=== PATIENT | male | born 1945 | race Caucasian/White ===

== ENCOUNTER → 2020-02-02 | Outpatient (CLI) | payer OTHER | END | disposition home or self-care (01) | LOC: RAH 10:59 | PROVIDERS: ATTEND Nurse Practitioner Adult Health | DX: Z13.6 Encounter for screening for cardiovascular disorders (principal) | CPT/HCPCS: 75571 ==

== ENCOUNTER → 2020-02-25 | Outpatient (CLI) | payer MEDICARE | END | disposition home or self-care (01) | LOC: SHCH 14:29 | PROVIDERS: ATTEND Internal Medicine Cardiovascular Disease | DX: R60.0 Localized edema (principal) ==

== ENCOUNTER → 2020-02-29 | Outpatient (CLI) | payer MEDICARE ==
[~2020-02-29] MED LIST: REGADENOSON 0.4 MG/5 ML PF SYG IVP SCH
== END | disposition home or self-care (01) ==
LOC: SHCH 08:39
PROVIDERS: ATTEND Internal Medicine Cardiovascular Disease
DX: I25.10 Atherosclerotic heart disease of native coronary artery without angina pectoris (principal)
CPT/HCPCS: 78452; 93017; 96374; A9500 ×2; J2785

== ENCOUNTER → 2023-03-21 | Outpatient (CLI) | payer MEDICARE ==
[2023-03-21 12:49] LABS: CREATININE 0.8 mg/dL (0.5-1.5); POTASSIUM 4.1 mmol/L (3.5-5.1)
== END | disposition home or self-care (01) ==
LOC: LAB 10:54
PROVIDERS: ATTEND Internal Medicine Cardiovascular Disease
DX: I10 Essential (primary) hypertension (principal)
CPT/HCPCS: 36415; 80048

== ENCOUNTER → 2023-03-28 | Outpatient (CLI) | payer MEDICARE ==
[~2023-03-28] MED LIST changes: +IOHEXOL 350 MG/ML 100ML INFUS..BTL IV ONE; +METOPROLOL TARTRATE 1 MG/ML 5ML VIAL IV ONE; -REGADENOSON 0.4 MG/5 ML PF SYG IVP SCH
== END | disposition home or self-care (01) ==
LOC: RAH 12:17
PROVIDERS: ATTEND Internal Medicine Cardiovascular Disease
DX: I25.10 Atherosclerotic heart disease of native coronary artery without angina pectoris (principal); I10 Essential (primary) hypertension
CPT/HCPCS: 75574; Q9967 ×2; J3490

== ENCOUNTER → 2023-04-08 | Outpatient (CLI) | payer MEDICARE | END | disposition home or self-care (01) | LOC: SHCH 14:10 | PROVIDERS: ATTEND Internal Medicine Cardiovascular Disease | DX: I35.8 Other nonrheumatic aortic valve disorders (principal); I11.9 Hypertensive heart disease without heart failure; I25.10 Atherosclerotic heart disease of native coronary artery without angina pectoris; I49.9 Cardiac arrhythmia, unspecified; E78.5 Hyperlipidemia, unspecified | CPT/HCPCS: 93306 ==

== ENCOUNTER 2023-05-27 07:35 | Day surgery (SDC) | payer MEDICARE ==
[2023-05-23 11:02] LABS: BASOPHILS # (AUTO) 0.04 K/uL (0.00-0.20); BASOPHILS % (AUTO) 0.7 % (0.0-5.0); EOSINOPHILS # (AUTO) 0.17 K/uL (0.00-0.70); EOSINOPHILS % (AUTO) 2.9 % (0.0-8.0); IMMATURE GRANULOCYTE ABSOLUTE 0.03 K/uL (0-1); LYMPHOCYTES # (AUTO) 1.2 K/uL (1.0-4.8); LYMPHOCYTES % (AUTO) 20.3 % (21.0-51.0); MEAN CORPUSCULAR HEMOGLOBIN 29.3 pg (27.0-33.0); MEAN CORPUSCULAR HGB CONC 32.4 g/dL (32.0-36.0); MEAN CORPUSCULAR VOLUME 90.4 fL (79-99); MONOCYTES # (AUTO) 0.5 K/uL (0.1-1.0); NEUTROPHILS # (AUTO) 3.9 K/uL (1.8-7.7); NEUTROPHILS % (AUTO) 66.6 % (40.0-77.0); PLATELET COUNT (AUTO) 188 K/uL (130-400); RED BLOOD CELL COUNT(AUTO) 4.98 MIL/uL (4.50-6.20); RED CELL DISTRIBUTION WIDTH 13.6 % (11.0-15.5); WHITE BLOOD COUNT (AUTO) 5.9 K/uL (4.8-10.8)
[2023-05-23 11:12] LABS: CREATININE 0.9 mg/dL (0.5-1.5); POTASSIUM 3.7 mmol/L (3.5-5.1)
[2023-05-23 11:20] VITALS: BP 149/78; PULSE 69; RESP 19
[2023-05-23 11:31] LABS: APPEARANCE,URINE CLEAR (CLEAR); BILIRUBIN,URINE NEGATIVE (NEGATIVE); COLOR,URINE LIGHT-YELLOW (YELLOW); GLUCOSE, URINE (UA) NEGATIVE (NEGATIVE); KETONES,URINE NEGATIVE (NEGATIVE); LEUKOCYTE ESTERASE ,URINE NEGATIVE Leu/uL (NEGATIVE); NITRATE,URINE NEGATIVE (NEGATIVE); OCCULT BLOOD,URINE NEGATIVE (NEGATIVE); PH,URINE 5.5 (5.0-8.0); PROTEIN,URINE NEGATIVE (NEGATIVE); UROBILINOGEN,URINE 0.2 mg/dL (0.2-1.0)
[2023-05-23 11:36] LABS: ADD UA MICROSCOPIC YES
[2023-05-23 11:54] LABS: MUCUS,URINE RARE LPF (None Seen); RBC,URINE 0-1 /HPF (0-1); WBC,URINE 0-1 /HPF (0-1)
[2023-05-23 11:56] LABS: INR 0.96 (0.85-1.15); PROTHROMBIN TIME 11.2 SEC (9.6-11.6)
[2023-05-23 11:57] LABS: PARTIAL THROMBOPLASTIN TIME 29.2 SEC (26.3-35.5)
[~2023-05-27] VITALS: Ht 182.9 cm; Wt 121.6 kg
[2023-05-27] VITALS (10 sets, daily range): BP systolic 128–168; BP diastolic 67–85; PULSE 61–70; RESP 14–16
[~2023-05-27 07:35] MED LIST changes: +AEC81 PO; +APIX5TAB PO; +CIPR500T10 PO; -IOHEXOL 350 MG/ML 100ML INFUS..BTL IV ONE; +LISI20TA24 PO; -METOPROLOL TARTRATE 1 MG/ML 5ML VIAL IV ONE; +ROSU20TA73 PO
[2023-05-27] MEDS ORDERED: 0.9%NACL 1000ML 1,000 ML IV ONE (08:59)
[2023-05-27] MEDS ORDERED: SODIUM BICARB 50MEQ 50ML VIAL 50 ML ONE (12:08)
[2023-05-27] MEDS ORDERED: LIDOCAINE HCL 400MG/20ML VIAL ONE (12:08)
[2023-05-27] MEDS ORDERED: MEPERIDINE-PF 50 MG/ML SYG ONE ×2 (12:08→13:05)
[2023-05-27] MEDS ORDERED: MIDAZOLAM HCL 1 MG/ML 2ML VIAL ONE ×3 (12:08→13:06)
[2023-05-27] MEDS ORDERED: IOHEXOL-350 50ML VIAL IV ONE (12:09)
[2023-05-27] MEDS ORDERED: NICARDIPINE 25MG INJ IV ONE (12:09)
[2023-05-27] MEDS ORDERED: HEPARIN 10,000 UNIT/10ML (1,000 UNIT/ML) VIAL ONE (12:09)
[2023-05-27] MEDS ORDERED: IOHEXOL 350 MG/ML 100ML INFUS..BTL IV ONE (12:09)
[2023-05-27] MEDS ORDERED: 0.9%NACL 1000ML 1,000 ML IV SCH (13:30)
== END 2023-05-27 17:35 | disposition home or self-care (01) ==
LOC: DAH 07:35
PROVIDERS: ATTEND Internal Medicine Cardiovascular Disease
DX: I25.10 Atherosclerotic heart disease of native coronary artery without angina pectoris (principal); I25.82 Chronic total occlusion of coronary artery; I48.92 Unspecified atrial flutter; I45.10 Unspecified right bundle-branch block; I10 Essential (primary) hypertension; I25.2 Old myocardial infarction; Z79.899 Other long term (current) drug therapy; Z79.01 Long term (current) use of anticoagulants; Z79.82 Long term (current) use of aspirin; Z86.718 Personal history of other venous thrombosis and embolism
CPT/HCPCS: 80048; 83880; 85025; 85610; 85730; 81001; 36415; 71045; 93005 ×2; 93458; 85347; C1769 ×2; C1894; C1887; C1725; J3490 ×3; J7030; J1644 ×2; J2250 ×3; J2175 ×2; Q9967; A4215 ×2; A4222 ×2; A4663 ×2; A4216 ×2; Q9965 ×2; A4223 ×5; A4221 ×2; A4606 ×2; 92920; 96360; 96361; 99156; 99157

== ENCOUNTER → 2023-07-04 | Outpatient (CLI) | payer MEDICARE ==
[~2023-07-04] MED LIST changes: +ASPI-1197 PO; +FINA5TAB41 PO; +ROSU40TA21 PO; +TAMS-1 PO
== END | disposition home or self-care (01) ==
LOC: SHCH 10:49
PROVIDERS: ATTEND Internal Medicine Cardiovascular Disease
DX: I87.2 Venous insufficiency (chronic) (peripheral) (principal); R60.9 Edema, unspecified
CPT/HCPCS: 93971

== ENCOUNTER 2023-07-09 06:42 | Day surgery (SDC) | payer MEDICARE ==
[2023-07-08 12:26] LABS: BASOPHILS # (AUTO) 0.03 K/uL (0.00-0.20); BASOPHILS % (AUTO) 0.5 % (0.0-5.0); EOSINOPHILS # (AUTO) 0.12 K/uL (0.00-0.70); EOSINOPHILS % (AUTO) 2.1 % (0.0-8.0); HEMATOCRIT 47.1 % (42-54); IMMATURE GRANULOCYTE ABSOLUTE 0.02 K/uL (0-1); LYMPHOCYTES # (AUTO) 0.9 K/uL (1.0-4.8); LYMPHOCYTES % (AUTO) 16.6 % (21.0-51.0); MEAN CORPUSCULAR HEMOGLOBIN 29.6 pg (27.0-33.0); MEAN CORPUSCULAR HGB CONC 32.5 g/dL (32.0-36.0); MEAN CORPUSCULAR VOLUME 91.1 fL (79-99); MONOCYTES # (AUTO) 0.6 K/uL (0.1-1.0); MONOCYTES % (AUTO) 10.2 % (3.0-13.0); NEUTROPHILS # (AUTO) 3.9 K/uL (1.8-7.7); NEUTROPHILS % (AUTO) 70.2 % (40.0-77.0); PLATELET COUNT (AUTO) 187 K/uL (130-400); RED BLOOD CELL COUNT(AUTO) 5.17 MIL/uL (4.50-6.20); RED CELL DISTRIBUTION WIDTH 14.6 % (11.0-15.5); WHITE BLOOD COUNT (AUTO) 5.6 K/uL (4.8-10.8)
[2023-07-08 12:43] LABS: INR 0.97 (0.85-1.15); PROTHROMBIN TIME 11.3 SEC (9.6-11.6)
[2023-07-08 12:44] LABS: PARTIAL THROMBOPLASTIN TIME 27.6 SEC (26.3-35.5)
[2023-07-08 12:45] VITALS: BP 162/83; PULSE 67; RESP 18
[2023-07-08 12:52] LABS: CREATININE 0.8 mg/dL (0.5-1.5); POTASSIUM 4.7 mmol/L (3.5-5.1)
[~2023-07-09] VITALS: Ht 182.9 cm; Wt 117.8 kg
[2023-07-09] VITALS (9 sets, daily range): BP systolic 107–158; BP diastolic 58–84; PULSE 64–82; RESP 14–16
[~2023-07-09 06:42] MED LIST changes: -CIPR500T10 PO; -ROSU20TA73 PO
[2023-07-09] MEDS ORDERED: 0.9%NACL 1000ML 1,000 ML IV ONE (06:54)
[2023-07-09] MEDS ORDERED: MEPERIDINE-PF 25 MG/ML SYG ONE ×3 (09:33→10:43)
[2023-07-09] MEDS ORDERED: LIDOCAINE HCL 400MG/20ML VIAL ONE (09:33)
[2023-07-09] MEDS ORDERED: MIDAZOLAM HCL 1 MG/ML 2ML VIAL ONE ×3 (09:34→10:43)
[2023-07-09] MEDS ORDERED: HEPARIN 10,000 UNIT/10ML (1,000 UNIT/ML) VIAL ONE (09:34)
== END 2023-07-09 14:40 | disposition home or self-care (01) ==
LOC: DAH 06:42
PROVIDERS: ATTEND Internal Medicine Cardiovascular Disease
DX: I48.3 Typical atrial flutter (principal); I25.10 Atherosclerotic heart disease of native coronary artery without angina pectoris; I10 Essential (primary) hypertension; E78.5 Hyperlipidemia, unspecified; Z80.9 Family history of malignant neoplasm, unspecified; Z72.89 Other problems related to lifestyle; Z79.82 Long term (current) use of aspirin; Z79.899 Other long term (current) drug therapy
CPT/HCPCS: 80048; 85025; 85610; 85730; 36415; 93005 ×2; 93653; 85347; C1894 ×2; C1732 ×2; A4649 ×2; J3490; J7030; J2250 ×2; J2175 ×3; J1644; A4215; A4222; A4221; A4663; A4216; A4606; A4223 ×3; 99156; 99157

== ENCOUNTER → 2023-12-18 | Outpatient (CLI) | payer MEDICARE ==
[~2023-12-18] MED LIST changes: +ASPI-1005 PO; +CLOP75TA32 PO; +DABI150C PO; +LISI40TA9 PO; -ROSU40TA21 PO; +ROSU40TA70 PO
[2023-12-18 12:09] LABS: BASOPHILS # (AUTO) 0.03 K/uL (0.00-0.20); BASOPHILS % (AUTO) 0.5 % (0.0-5.0); EOSINOPHILS # (AUTO) 0.17 K/uL (0.00-0.70); EOSINOPHILS % (AUTO) 2.7 % (0.0-8.0); HEMATOCRIT 44.3 % (42-54); IMMATURE GRANULOCYTE ABSOLUTE 0.03 K/uL (0-1); LYMPHOCYTES # (AUTO) 1.1 K/uL (1.0-4.8); LYMPHOCYTES % (AUTO) 16.9 % (21.0-51.0); MEAN CORPUSCULAR HEMOGLOBIN 30.5 pg (27.0-33.0); MEAN CORPUSCULAR HGB CONC 32.7 g/dL (32.0-36.0); MEAN CORPUSCULAR VOLUME 93.3 fL (79-99); MONOCYTES # (AUTO) 0.6 K/uL (0.1-1.0); NEUTROPHILS # (AUTO) 4.3 K/uL (1.8-7.7); NEUTROPHILS % (AUTO) 69.4 % (40.0-77.0); PLATELET COUNT (AUTO) 191 K/uL (130-400); RED BLOOD CELL COUNT(AUTO) 4.75 MIL/uL (4.50-6.20); RED CELL DISTRIBUTION WIDTH 13.9 % (11.0-15.5); WHITE BLOOD COUNT (AUTO) 6.2 K/uL (4.8-10.8)
[2023-12-18 12:18] LABS: CREATININE 0.9 mg/dL (0.5-1.3); POTASSIUM 4.4 mmol/L (3.5-5.1)
[2023-12-18 12:22] LABS: INR <= 0.93 (0.85-1.15); PROTHROMBIN TIME 10.5 SEC (9.6-11.6)
[2023-12-18 12:23] LABS: PARTIAL THROMBOPLASTIN TIME 27.9 SEC (26.3-35.5)
== END | disposition home or self-care (01) ==
LOC: LAB 10:01
PROVIDERS: ATTEND Internal Medicine Cardiovascular Disease
DX: Z01.812 Encounter for preprocedural laboratory examination (principal); I87.2 Venous insufficiency (chronic) (peripheral); I87.1 Compression of vein; Z79.01 Long term (current) use of anticoagulants
CPT/HCPCS: 36415; 80048; 85025; 85610; 85730

== ENCOUNTER → 2024-01-13 | Outpatient (CLI) | payer MEDICARE ==
[~2024-01-13] MED LIST changes: -ASPI-1005 PO; -CLOP75TA32 PO; -DABI150C PO; -LISI40TA9 PO; +ROSU40TA21 PO; -ROSU40TA70 PO
== END | disposition home or self-care (01) ==
LOC: SHCH 13:53
PROVIDERS: ATTEND Internal Medicine Cardiovascular Disease
DX: I82.412 Acute embolism and thrombosis of left femoral vein (principal); I87.2 Venous insufficiency (chronic) (peripheral); I82.531 Chronic embolism and thrombosis of right popliteal vein; I87.1 Compression of vein
CPT/HCPCS: 93970

== ENCOUNTER → 2024-05-28 | Outpatient (CLI) | payer MEDICARE ==
[~2024-05-28] MED LIST changes: -AEC81 PO; -APIX5TAB PO; +ASPI-1005 PO; -ASPI-1197 PO; +CLOP75TA32 PO; +DABI150C PO; -LISI20TA24 PO; +LISI40TA9 PO; -ROSU40TA21 PO; +ROSU40TA88 PO
== END | disposition home or self-care (01) ==
LOC: SHCH 09:24
PROVIDERS: ATTEND Internal Medicine Cardiovascular Disease
DX: I87.2 Venous insufficiency (chronic) (peripheral) (principal); I87.1 Compression of vein
CPT/HCPCS: 93970

== ENCOUNTER → 2024-07-23 | Outpatient (CLI) | payer MEDICARE ==
--- NOTE | 2024-07-23 12:01 | HMCIMG ---
TIBIA/FIBULA 2VWS LT REASON: Pain in left lower leg TECHNIQUE: 4 views were obtained. FINDINGS: There is no evidence of fracture or dislocation. There is no joint effusion. The soft tissues appear unremarkable. There is no evidence of a radiopaque foreign body. IMPRESSION: No acute findings.
== END | disposition home or self-care (01) ==
LOC: RAH 09:26
PROVIDERS: ATTEND Nurse Practitioner Adult Health
DX: M79.662 Pain in left lower leg (principal)
CPT/HCPCS: 73590

== ENCOUNTER → 2024-12-15 | Outpatient (CLI) | payer MEDICARE ==
[~2024-12-15] MED LIST changes: -TAMS-1 PO; +TAMS-55 PO
== END | disposition home or self-care (01) ==
LOC: SHCH 08:07
PROVIDERS: ATTEND Internal Medicine Cardiovascular Disease
DX: I82.431 Acute embolism and thrombosis of right popliteal vein (principal); I82.412 Acute embolism and thrombosis of left femoral vein; I87.2 Venous insufficiency (chronic) (peripheral); I87.1 Compression of vein
CPT/HCPCS: 93970